=== PATIENT | male | born 1980 | race African-American/Black ===

== ENCOUNTER 2017-06-21 21:12 | Emergency (ER) | payer BC, OTHER ==
[~2017-06-21] VITALS: Ht 167.6 cm; Wt 81.9 kg
[~2017-06-21 21:12] MED LIST: None at this time
[2017-06-21 21:23] VITALS: BP 145/87
[2017-06-21] MEDS ORDERED: DIPH,PERTUSS(ACELL),TET VAC/PF 0.5 ML IM-VACC ONE ×2 (21:43→22:00)
[2017-06-21] MEDS ORDERED: BUPIVACAINE 0.25% ONE (22:05)
[2017-06-21] MEDS ORDERED: BACITRACIN ZINC OINT 500U/GM, 0.9 GM ONE (22:31)
== END 2017-06-21 23:03 | disposition home or self-care (01) ==
LOC: ED 22:39
DX: S91.214A Laceration without foreign body of right lesser toe(s) with damage to nail, initial encounter (principal); L03.90 Cellulitis, unspecified; Z23 Encounter for immunization; X58.XXXA Exposure to other specified factors, initial encounter; Y93.89 Activity, other specified; Y99.8 Other external cause status; Y92.89 Other specified places as the place of occurrence of the external cause
CPT/HCPCS: 12001; 90471; 90715

== ENCOUNTER 2017-07-02 17:06 | Emergency (ER) | payer BC ==
[~2017-07-02] VITALS: Ht 167.6 cm; Wt 79.0 kg
[2017-07-02 17:22] VITALS: BP 138/87
== END 2017-07-02 18:46 | disposition home or self-care (01) ==
LOC: ED 18:40
DX: Z48.02 Encounter for removal of sutures (principal); F17.200 Nicotine dependence, unspecified, uncomplicated
CPT/HCPCS: 99281

== ENCOUNTER 2018-09-28 03:31 | Emergency (ER) | payer BC, OTHER ==
[~2018-09-28] VITALS: Ht 167.6 cm; Wt 79.1 kg
--- NOTE | 2018-09-28 03:41 | NUR ---
HEAD ACHE X 3 DAYS WAS SEEN AT [facility] YESTERDAY PAIN NOT IMPROVED per triage note
--- NOTE | 2018-09-28 03:53 | NUR ---
erp at bedside pt will get medication per md order
[2018-09-28] MEDS ORDERED: KETOROLAC 30 MG/1 ML IM ONE (04:00)
[2018-09-28] MEDS ORDERED: DIPHENHYDRAMINE 25 MG CAPSULE ONE (04:00)
[2018-09-28] MEDS ORDERED: ACETAMINOPHEN 325 MG TABLET PO ONE (04:00)
[2018-09-28] MEDS ORDERED: KETOROLAC 30 MG/1 ML ONE (04:00)
[2018-09-28] MEDS ORDERED: DIPHENHYDRAMINE 25 MG CAPSULE PO ONE (04:00)
[2018-09-28] MEDS ORDERED: ONDANSETRON ODT 4 MG ONE (04:00)
[2018-09-28] MEDS ORDERED: ACETAMINOPHEN 325 MG TABLET ONE (04:00)
[2018-09-28] MEDS ORDERED: ONDANSETRON ODT 4 MG PO ONE (04:00)
--- NOTE | 2018-09-28 04:09 | NUR ---
all meds were given per md order pt is resting for now vss
[2018-09-28] MEDS ORDERED: LIDOCAINE 1%, 10ML INFIL ONE (04:30)
[2018-09-28] MEDS ORDERED: LIDOCAINE-MPF 1%, 5ML ONE (04:48)
--- NOTE | 2018-09-28 04:51 | NUR ---
pt is in [place] now obtained consent of LP
--- NOTE | 2018-09-28 05:24 | NUR ---
LP was done at bedside by mary urrutia and this rn assist vss updated pt is laying flat for at least one hr pt was informed
--- NOTE | 2018-09-28 05:41 | NUR ---
pt is sleeping still laying flat no c/o
[2018-09-28 05:42] LABS: GLUCOSE, CSF 77 mg/dL (40-80); TOTAL PROTEIN,CSF 31 mg/dL (15-45)
[2018-09-28 06:30] VITALS: BP 133/87
--- NOTE | 2018-09-28 06:32 | NUR ---
pt is sleeping no other c/o
--- NOTE | 2018-09-28 07:21 | NUR ---
REPORT RECEIVED FROM JENNIFER RN
--- NOTE | 2018-09-28 07:22 | NUR ---
DISCHARGE ORDERS RECIEVED, PT GIVEN DISCHARGE INSTRUCTIONS, UNDERSTANDING STATED. VERIFEID ALL BELONGINGS WITH PT ON DISCHARGE. PT ESCORTED TO CHECK OUT,
== END 2018-09-28 07:25 | disposition home or self-care (01) ==
LOC: ED 07:20
DX: R51 Headache (principal); H65.01 Acute serous otitis media, right ear
CPT/HCPCS: 62270; 70450; 82945; 84157; 87070; 87205; 87252; 89051; 96372; 99284; J1885; Q0162; Q0163

== ENCOUNTER 2018-09-28 23:53 | Emergency (ER) | payer OTHER ==
[2018-09-28 23:56] VITALS: BP 166/93
[2018-09-29] MEDS ORDERED: DIPHENHYDRAMINE 25 MG CAPSULE ONE (00:16)
[2018-09-29] MEDS ORDERED: HYDROcodone/APAP 5/325 TABLET ONE (00:16)
[2018-09-29] MEDS ORDERED: DEXAMETHASONE 4 MG TABLET ONE (00:17)
[2018-09-29] MEDS ORDERED: HYDROcodone/APAP 5/325 TABLET PO ONE (00:30)
[2018-09-29] MEDS ORDERED: DIPHENHYDRAMINE 25 MG CAPSULE PO ONE (00:30)
[2018-09-29] MEDS ORDERED: DEXAMETHASONE 4 MG TABLET PO ONE (00:30)
== END 2018-09-29 01:24 | disposition home or self-care (01) ==
LOC: ED 23:59
DX: G43.C0 Periodic headache syndromes in child or adult, not intractable (principal); B34.9 Viral infection, unspecified; F17.200 Nicotine dependence, unspecified, uncomplicated
CPT/HCPCS: 99284; Q0163